=== PATIENT | male | born 1980 | race Caucasian/White ===

== ENCOUNTER 2023-07-17 17:09 | Emergency (ER) | payer OTHER, SELFPAY ==
[2023-07-17 17:32] VITALS: BP 120/76; BMI 24.0
[2023-07-17 17:33] VITALS: BP 120/76
--- NOTE | 2023-07-17 18:08 | ED.GENMED ---
History of Present Illness
General
Chief Complaint: Musculo-Skeletal Complaint
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
Time Seen by Provider: 07/17/23 17:32
Travel History
Have you had any contact with someone who has COVID-19?: No
Do you have any symptoms of coronavirus? Fever > 100 degrees, chills, cough, shortness of breath, sore throat, loss of taste or smell, muscle aches, or headache?: No
History of Present Illness
History of Present Illness:
43-year-old male presenting emergency department for evaluation of left foot/heel pain after a few days ago he was turning and pivoting now with pain of the left midfoot and heel. Triage note states that he jumped from the top bunk bed but patient
states that this never occurred. He has not taken anything for pain. Denies any previous history of injury or surgery. No other concerns at this time.
Past History
Past History
ED Past Medical History: Psychiatric (ADHD)
ED Past Surgical History: Other
Social History
Tobacco: Smoker
Alcohol: None
Drug: None
Living: penitentiary
Review of Systems
Review of Systems
All Other Systems: ROS reviewed and negative except as documented in HPI and ROS
Phy Exam
Physical Exam
Physical Exam:
GENERAL: Alert , in no apparent distress
EYE: conjunctiva clear
Head: Normocephalic atraumatic
NECK: Supple,
ENT: mmm.
LUNGS: no acute respiratory distress
NEUROLOGICAL: Alert and oriented
SKIN: Warm and dry, skin intact.
MUSCULOSKELETAL: Left lower extremity: Mild to moderate soft tissue swelling along the medial aspect of the calcaneus extending towards the medial malleoli. There is small ecchymosis in this area. Calcaneal tendon is without laxity. Unable to a
passively plantar and dorsiflex the foot without any difficulty. Easily palpable pedal and tibial pulse. Cap refill less than 2 seconds. Remainder of extremities within normal limits.
PSYCH: Normal and appropriate interaction.
Scores
Heart Failure Risk
Heart Failure Risk Score: Not Applicable
Heart Score for Chest Pain Patients
STEMI patient?: Not applicable
Withdrawal Assessment of Alcohol
Withdrawal Assessment Completed?: Not applicable
Course
Orders/Labs/Results
Orders:
Orders
07/17/23 17:32
CR Foot - Left Min 3 Views Urgent
Comment:
Reason For Exam: midfoot pain
07/17/23 18:14
Jayesh Wrap Left-Treatment ONCE
Vital Signs
Initial and Last Documented VS:
Initial Vital Signs
Temp Pulse Resp BP Pulse Ox
98.3 F 64 16 120/76 99
07/17/23 17:32 07/17/23 17:32 07/17/23 17:32 07/17/23 17:32 07/17/23 17:32
Last Documented Vital Signs
Temp Pulse Resp BP Pulse Ox
98.3 F 64 16 125/80 99
07/17/23 17:32 07/17/23 17:32 07/17/23 17:32 07/17/23 18:24 07/17/23 18:25
MDM/Problems Addressed
Differential Diagnosis Includes:
Sprain, contusion, fracture
MDM/Problems Addressed:
43-year-old male present emergency department for evaluation of left foot pain, edema, ecchymosis. X-ray was ordered from triage and ultimately shows no acute fracture. There is no laxity of the calcaneal tendon. Will place an Jayesh wrap for
compression. NSAIDs/Tylenol as needed for pain. Outpatient follow-up with orthopedics as needed.
*Radiology
Radiology exam reviewed: preliminary read by ED provider (No acute fracture)
*Pulse Oximetry
Patient hypoxic: no
*Critical Care Note
Total Time (30-74mins, 75-104mins- exclusive of procedures): Not Applicable
ED Attending Note
-
Portions of this chart may have been created with voice recognition software.� Occasional wrong word or��sound alike� substitutions may have occurred due to the inherent limitations of voice recognition software.
Discharge Plan
Departure
Patient Disposition: Home (Routine Discharge)
Date of Disposition: 07/17/23
Time of Disposition: 18:08
Patient with high blood pressure during this ER visit?: No
Discharge Problem:
Left foot pain
Instructions: Sprain (DC)
Referrals:
[facility] [Family Provider] -
Interventions
Interventions:
*Risk Screen - Suicide Last Done: 07/17/23 17:32
*General Assessment Last Done: 07/17/23 17:32
*Neglect/Abuse Screening Last Done: 07/17/23 17:32
ED- Fall Risk Assessment Last Done: 07/17/23 17:32
*ED COVID-19 Vaccine History Last Done: 07/17/23 17:32
*Nursing Disposition Last Done: 07/17/23 18:27
ED-Musculoskeletal Assessment Last Done: 07/17/23 17:32
Discharge Date and Time
Discharge Date/Time: 07/17/23 18:31
Print Language: PERSIAN
[2023-07-17 18:24] VITALS: BP 125/80
== END 2023-07-17 18:31 | disposition home or self-care (01) ==
LOC: EMR 17:09
PROVIDERS: EMERGENCY PHYSICIAN Emergency Medicine
DX: M79.672 Pain in left foot (principal); S90.32XA Contusion of left foot, initial encounter; X58.XXXA Exposure to other specified factors, initial encounter; F90.9 Attention-deficit hyperactivity disorder, unspecified type; F17.200 Nicotine dependence, unspecified, uncomplicated
CPT/HCPCS: 99283; 73630